=== PATIENT | female | born 1985 | race Caucasian/White ===

== ENCOUNTER → 2016-06-07 | Outpatient (CLI) | payer BC, SELFPAY | END | disposition home or self-care (01) | LOC: RAD.S 10:30 | DX: O20.9 Hemorrhage in early pregnancy, unspecified (principal); Z3A.14 14 weeks gestation of pregnancy ==

== ENCOUNTER 2016-06-08 04:34 | Emergency (ER) | payer BC, SELFPAY ==
--- NOTE | 2016-06-08 19:24 | ER ---
ADMIT: 06/08/2016 RM/LOC: ER [facility] MR#: [id number] [facility] [address] [id number] MAYDA DIAZ [address] [place] [id number] Emergency Room Report SEX: F AGE: 30 : 1985 DATE: 06/08/2016 The patient is a 30-year-old female, 2, para 1, per LMP is 14 weeks and who came to the ER with chief complaint of abdominal pain and passage of tissue through the vagina. The patient had minimal vaginal bleeding too. By the time in the ER, the patient's abdominal pain resolved and she passed the products of , fetus and placenta. The patient had about 10 mL of bleeding in the ER. Gross circulation of the placenta looked complete. The patient was in no pain. The patient received IV fluids. Vitals are stable. The patient has no active bleeding. Examination of the head and neck and chest was noncontributory. Abdomen was soft. Pelvic exam did not show any active bleeding. There was just a small clot on the opening of the cervix. On palpation of the abdomen, it looks like the uterus is regaining its tone. The patient is Rh positive, hemoglobin is stable. Ultrasound was questionable of retained product of conception. Obstetrical and Gynecology Service, Dr. Tobias, was contacted and the patient was signed out to the next shift to follow up with the [employer]'s recommendations and dispo accordingly. DIAGNOSIS: Completed spontaneous . Serafin Oliva MD/ edis JOB #: [id number] CC: Serafin Oliva MD, Attending Physician Carolyn Robledo MD, Family Physician
== END 2016-06-08 09:45 | disposition home or self-care (01) ==
LOC: ER 04:34
DX: O03.9 Complete or unspecified spontaneous abortion without complication (principal)